=== PATIENT | female | born 1950 | race Caucasian/White ===

== ENCOUNTER → 2017-01-20 | Outpatient (CLI) | payer MEDICARE, BC ==
--- NOTE | 2017-01-20 12:08 | RADRPT ---
PROCEDURE: CR Right Knee CLINICAL INDICATION: Pain TECHNIQUE: An AP, lateral, a patellar view, and an oblique radiographs were submitted. COMPARISON: None FINDINGS: Osseous Structures: The osseous elements appear well mineralized and intact. There is slight spurrin g off the medial intercondylar spine. Join Spaces: The joint spaces are well maintained. No joint effusion is identified. Soft Tissues: The soft tissues appear unremarkable. IMPRESSION: 1. Mild spurring off the medial intercondylar spine. 2. Otherwise, unremarkable right knee series. Physician Yoselin Date Time Electronically viewed and signed by Simón Dumont Physician on 01/20/2017 12:07 /
== END | disposition home or self-care (01) ==
LOC: HKI 11:07
PROVIDERS: ATTEND Orthopaedic Surgery
DX: M25.561 Pain in right knee (principal); M22.41 Chondromalacia patellae, right knee
CPT/HCPCS: G0463